=== PATIENT | male | born 1975 | race Caucasian/White ===

== ENCOUNTER 2017-11-30 15:50 | Emergency (ER) | payer SELFPAY ==
[~2017-11-30] VITALS: Ht 190.5 cm; Wt 147.4 kg
[~2017-11-30 15:50] MED LIST: HYDR473S4 PO; NO ROUTINE MEDS; ONDA4TAB PO; SULF-198 PO
--- NOTE | 2017-11-30 15:54 | ER Report ---
History and Physical Time Seen By MD: 15:54 HPI/ROS CHIEF COMPLAINT: Fall left arm pain HISTORY OF PRESENT ILLNESS: Patient is a 42 old male presents to the emergency department for evaluation of left arm pain and numbness to the left thumb after slip and fall on the ice that occurred Sunday. Patient states he was taking Advil with some relief of pain but now is having difficulty finding a comfortable position and is having numbness to the left thumb. Allergies: Coded Allergies: No Known Drug Allergies (Unverified , 11/30/17) Home Meds Active Scripts Methocarbamol (ROBAXIN-750) 750 Mg Tablet, 1500 MG PO TID for Muscle Relaxant, # 30 TAB 0 Refills Prov:JOSUÉ CURRAN MD 11/30/17 Methylprednisolone (METHYLPREDNISOLONE) 4 Mg Tab.ds.pk, 4 MG PO DIRECTED, # 21 TAB Prov:JOSUÉ CURRAN MD 11/30/17 Oxycodone Hcl/Acetaminophen (PERCOCET 5-325 MG TABLET) 1 Each Tablet, 1-2 EACH PO Q4-6H for PAIN, #30 TAB 0 Refills Prov:JOSUÉ CRURAN MD 11/30/17 Discontinued Reported Medications [No Routine Meds] No Conflict Check 12/24/14 Discontinued Scripts Sulfamethoxazole/Trimet 800-160 Mg Tab (BACTRIM DS TABLET) 1 Each Tablet, 1 TAB PO Q12H, #20 MG 0 Refills TAKE ONE TABLET BY MOUTH EVERY TWELVE HOURS Prov:SAM OH MD 12/24/14 Past Medical/Surgical History Noncontributory to this chief complaint Hx Smoking: Yes (1/2 PPD) Smoking Status: Current: Every Day Smoker Hx Substance Use Disorder: No Hx Alcohol Use: No Constitutional Vital Sign - Last 24 Hours 11/30/17 11/30/17 15:55 17:52 Temp 97.9 Pulse 84 83 Resp 18 14 B/P (MAP) 141/97 147/102 (117) Pulse Ox 93 91 O2 Delivery Room Air Room Air Physical Exam General appearance: Alert no distress. Respiratory: Chest is non tender, lungs are clear to auscultation. Cardiac: Regular rate and rhythm Examination of the Left hand reveals no acute deformity. The patient is able to give a thumbs up sign, is able to make an okay sign, and is able to AB duct the fingers. Sensation is intact over the dorsal 1st web space, the volar aspect of the 2nd finger, and the volar aspect of the 5th finger. Capillary refill is brisk. There is no tenderness to the left clavicle or left humerus. No obvious deformity. Medical Decision Making EKG/Imaging Imaging FACILITY: [facility] [place] PATIENT NAME: Geoffrey Malone : 1975 MR: [id number] V: [id number] EXAM DATE: ORDERING PHYSICIAN: JOSUÉ CURRAN TECHNOLOGIST: Location: [facility] Patient: Geoffrey Malone : 1975 Visit/Account:[id number] Date of Sevice: 11/30/2017 CT Cervical Spine Indication: Neck pain. Comparison: None available. Technique: Axial CT imaging of the cervical spine was performed. 2-D sagittal and coronal CT reformats were also obtained. One of the following dose optimization techniques was utilized in the performance of this exam: automated exposure control; adjustment of the mA and/ or kV according to the patient's size; or use of an iterative reconstruction technique. Specific details can be referenced in the facility's radiology CT exam operational policy. Findings: The vertebral bodies are aligned. There is reverse curvature of the cervical spine. No acute fracture or facet dislocation. There is diffuse mild/moderate degenerative changes including disc space narrowing, endplate changes, osteophytes and facet arthropathy. No bony canal stenosis. Multilevel neural foramina narrowing. The endplates are maintained. No obvious disc herniation. Prevertebral soft tissues and surrounding soft tissues are unremarkable. Lung apices are clear. Impression: 1. No acute osseous or acute alignment abnormality of the cervical spine 2. Degenerative changes. There is also reversed curvature of the cervical spine which may be due to the degenerative changes. Report Dictated By: Neeraj Rossi at 11/30/2017 5:20 PM Report E-Signed By: Neeraj Rossi at 11/30/2017 5:24 PM WSN:[id number] FACILITY: [facility] [place] PATIENT NAME: Geoffrey Malone : 1975 MR: [id number] V: [id number] EXAM DATE: ORDERING PHYSICIAN: JOSUÉ CURRAN TECHNOLOGIST: Location: [facility] Patient: Geoffrey Malone : 1975 Visit/Account:[id number] Date of Sevice: 11/30/2017 SHOULDER MIN 2 VIEWS LEFT HISTORY: Pain COMPARISON: None FINDINGS: There is no evidence of acute fracture or dislocation. There is mild degenerative change of the left glenohumeral joint. The acromioclavicular joint is normal in appearance. There is no significant soft tissue abnormality. IMPRESSION: No acute osseous abnormality There is mild degenerative disease of the left glenohumeral joint. Report Dictated By: Jose Daniel Sierra at 11/30/2017 4:45 PM Report E-Signed By: Jose Daniel Sierra at 11/30/2017 4:46 PM WSN:[email or web address] ED Course/Re-evaluation ED Course 11/30/2017 5:12:01 pm plan at this time will be x-ray of the left shoulder along with a CT of the C-spine. Re-evaluation Patient did not receive adequate pain relief with IV Norflex and Toradol we'll give Dilaudid at this time. Decision to Disposition Date: Nov 30, 2017 Decision to Disposition Time: 17:40 Depart Departure Latest Vital Signs Vital Signs Date Time Temp Pulse Resp B/P (MAP) Pulse Ox O2 Delivery O2 Flow Rate FiO2 11/30/17 17:52 83 14 147/102 (117) 91 Room Air 11/30/17 15:55 97.9 Impression: Primary Impression: Cervical radicular pain Condition: Improved Disposition: HOME OR SELF-CARE Referrals: SABRA MORROW (PCP) 1 Week if symptoms persist New Scripts Methocarbamol (ROBAXIN-750) 750 Mg Tablet 1500 MG PO TID for Muscle Relaxant, #30 TAB 0 Refills Prov: JOSUÉ CURRAN MD 11/30/17 Methylprednisolone (METHYLPREDNISOLONE) 4 Mg Tab.ds.pk 4 MG PO DIRECTED, #21 TAB Prov: JOSUÉ CURRAN MD 11/30/17 Oxycodone Hcl/Acetaminophen (PERCOCET 5-325 MG TABLET) 1 Each Tablet 1-2 EACH PO Q4-6H for PAIN, #30 TAB 0 Refills Prov: JOSUÉ CURRAN MD 11/30/17 Patient Instructions: Cervical Radiculopathy (ED) JOSUÉ CURRAN MD Nov 30, 2017 15:54
[2017-11-30] MEDS ORDERED: KETOROLAC 15 MG/ML VIAL IVP ONE (16:00)
[2017-11-30] MEDS ORDERED: ORPHENADRINE 60MG/2ML INJ IVP ONE (16:00)
[2017-11-30] MEDS ORDERED: HYDROmorphone(ER ONLY) 1 MG/ML IVP ONE (16:25)
--- NOTE | 2017-11-30 16:51 | RADIOLOGY IMAGING REPORT ---
FACILITY: [facility] PATIENT NAME: Geoffrey Malone : 1975 MR: [id number] V: [id number] EXAM DATE: ORDERING PHYSICIAN: JOSUÉ CURRAN TECHNOLOGIST: Location: [facility] Patient: Geoffrey Malone : 1975 Visit/Account:[id number] Date of Sevice: 11/30/2017 SHOULDER MIN 2 VIEWS LEFT HISTORY: Pain COMPARISON: None FINDINGS: There is no evidence of acute fracture or dislocation. There is mild degenerative change o f the left glenohumeral joint. The acromioclavicular joint is normal in appearance. There is no sign ificant soft tissue abnormality. IMPRESSION: No acute osseous abnormality There is mild degenerative disease of the left glenohumeral joint. Report Dictated By: Jose Daniel Sierra at 11/30/2017 4:45 PM Report E-Signed By: Jose Daniel Sirera at 11/30/2017 4:46 PM WSN:[email or web address]
--- NOTE | 2017-11-30 17:28 | RADIOLOGY IMAGING REPORT ---
FACILITY: [facility] [place] PATIENT NAME: Geoffrey Malone : 1975 MR: [id number] V: [id number] EXAM DATE: ORDERING PHYSICIAN: JOSUÉ CURRAN TECHNOLOGIST: Location: [facility] Patient: Geoffrey Malone : 1975 Visit/Account:[id number] Date of Sevice: 11/30/2017 CT Cervical Spine Indication: Neck pain. Comparison: None available. Technique: Axial CT imaging of the cervical spine was performed. 2-D sagittal and coronal CT reforma ts were also obtained. One of the following dose optimization techniques was utilized in the performance of this exam: autom ated exposure control; adjustment of the mA and/or kV according to the patient's size; or use of an i terative reconstruction technique. Specific details can be referenced in the facility's radiology CT exam operational policy. Findings: The vertebral bodies are aligned. There is reverse curvature of the cervical spine. No acute fracture or facet dislocation. There is diffuse mild/moderate degenerative changes including disc space narro wing, endplate changes, osteophytes and facet arthropathy. No bony canal stenosis. Multilevel neural foramina narrowing. The endplates are maintained. No obvious disc herniation. Prevertebral soft tissu es and surrounding soft tissues are unremarkable. Lung apices are clear. Impression: 1. No acute osseous or acute alignment abnormality of the cervical spine 2. Degenerative changes. There is also reversed curvature of the cervical spine which may be due to t he degenerative changes. Report Dictated By: Neeraj Rossi at 11/30/2017 5:20 PM Report E-Signed By: Neeraj Rossi at 11/30/2017 5:24 PM WSN:[id number]
[2017-11-30] MEDS ORDERED: METH-543 PO (17:45)
[2017-11-30] MEDS ORDERED: METH4TAB66 PO (17:45)
[2017-11-30] MEDS ORDERED: OXYC-865 PO (17:45)
[2017-11-30] MEDS ORDERED: oxyCODONE/ACETAMIN 5/325MG TH 2 TAB/BOTTLE PO ONE (17:50)
[2017-11-30 17:52] VITALS: BP 147/102
== END 2017-11-30 17:55 | disposition home or self-care (01) ==
LOC: ER 16:12
DX: M54.12 Radiculopathy, cervical region (principal)
CPT/HCPCS: 72125; 73030; 96374; 96375; 99283; J1170; J1885; J2360